=== PATIENT | female | born 2005 | race Caucasian/White ===

== ENCOUNTER 2024-12-13 08:45 | Emergency (ER) | payer OTHER, SELFPAY | END 2024-12-13 09:20 | disposition home or self-care (01) | LOC: BURERS 08:45 | DX: S93.601A Unspecified sprain of right foot, initial encounter (principal); F17.290 Nicotine dependence, other tobacco product, uncomplicated; W10.8XXA Fall (on) (from) other stairs and steps, initial encounter; Y99.0 Civilian activity done for income or pay | CPT/HCPCS: 99283 ==

== ENCOUNTER 2025-01-10 10:55 | Emergency (ER) | payer BC, OTHER | END 2025-01-10 12:30 | disposition home or self-care (01) | LOC: BURERS 10:55 | DX: S80.02XA Contusion of left knee, initial encounter (principal); F17.290 Nicotine dependence, other tobacco product, uncomplicated; W22.09XA Striking against other stationary object, initial encounter | CPT/HCPCS: 99283 ==